=== PATIENT | female | born 1990 | race Caucasian/White ===

== ENCOUNTER 2020-06-08 23:14 | Emergency (ER) | payer OTHER ==
[~2020-06-08] VITALS: Ht 162.6 cm; Wt 65.8 kg
[2020-06-08 23:16] VITALS: Ht 162.6 cm; Wt 65.8 kg
[2020-06-09] MEDS ORDERED: PROAIR HFA8.5 GM INH (00:23)
[2020-06-09] MEDS ORDERED: ALBUTEROL SULFAT3 M2 IH (00:23)
[2020-06-09] MEDS ORDERED: PREDNISONE50 MG PO (00:23)
[2020-06-09 02:25] VITALS: BP 165/100
== END 2020-06-09 02:25 | disposition home or self-care (01) ==
LOC: ED 23:14
DX: J45.901 Unspecified asthma with (acute) exacerbation (principal)
CPT/HCPCS: J7512